=== PATIENT | female | born 1960 | race Caucasian/White ===

== ENCOUNTER → 2020-09-23 09:00 | Outpatient (CLI) | payer OTHER, SELFPAY ==
[2020-09-23 08:30] VITALS: BMI 28.1
[2020-09-26 16:08] LABS: Dopamine, Pl <30 pg/mL (0-48); Epinephrine, Pl 45 pg/mL (0-62); Norepinephrine, Pl 521 pg/mL (0-874)
[2020-09-26 17:25] LABS: DHEA Sulfate 40.2 ug/dL (29.4-220.5)
== END ==
PROVIDERS: PCP Family Medicine; Referring Provider Internal Medicine Endocrinology, Diabetes & Metabolism; Visit Provider Internal Medicine Endocrinology, Diabetes & Metabolism
DX: E27.8 Other specified disorders of adrenal gland (principal)
CPT/HCPCS: 36415; 82384; 82627; 82626

== ENCOUNTER → 2023-05-26 | Outpatient (CLI) | payer OTHER, SELFPAY ==
[2023-05-26 12:19] LABS: Anion Gap 5 (5-15); BUN 17 mg/dL (7-18); BUN/Creat Ratio 17.9 RATIO (10-20); Calcium,Total 9.6 mg/dL (8.5-10.1); Chloride 104 mmol/L (98-107); Creatinine, Serum 0.95 mg/dL (0.55-1.02); EST Glomerular Filtration Rate 64 mL/min (>60); Est Glom Filt Rate - Afr Amer 77 mL/min (>60); Glucose 80 mg/dL (74-106); Potassium 3.7 mmol/L (3.5-5.1); Sodium Level 137 mmol/L (136-145)
== END | disposition home or self-care (01) ==
LOC: PAVLAB 11:40
PROVIDERS: PCP Family Medicine; Referring Provider Obstetrics & Gynecology; Visit Provider Obstetrics & Gynecology
DX: E87.6 Hypokalemia (principal)
CPT/HCPCS: 36415; 80048

== ENCOUNTER 2023-06-03 08:59 | Observation (INO) | payer OTHER, SELFPAY ==
--- NOTE | 2023-05-13 13:57 | EKG12_ITS ---
Test Reason : PRE OP Blood Pressure : / mmHG Vent. Rate : 062 BPM Atrial Rate : 062 BPM P-R Int : 158 ms QRS Dur : 084 ms QT Int : 452 ms P-R-T Axes : 045 021 022 degrees QTc Int : 458 ms Normal sinus rhythm Normal ECG Confirmed by JENNIFER PEREZ, LIANET ([id number]), graphics editor COURTNEY GAVIRIA ([id number]) on 05/16/2023 11:14:12 AM Referred By: Beatris Villa Confirmed By:LIANET RODRIGUEZ MD
--- NOTE | 2023-05-16 17:29 | HP.PCM_ITS ---
History and Physical Allergies No Known Allergies Allergy (Verified 05/02/23 14:02) Medications citalopram 10 mg tablet (Celexa) 5 mg PO DAILY 09/23/20 [History Confirmed 04/01/23] hydrochlorothiazide 12.5 mg tablet 12.5 mg PO DAILY 09/23/20 [History Confirmed 04/01/23] calcium carbonate 600 mg calcium (1,500 mg) tablet (Calcium) 600 mg PO DAILY 04/01/23 [History Confirmed 04/01/23] cholecalciferol (vitamin D3) 10 mcg (400 unit) capsule 10 mcg PO DAILY 04/01/23 [History Confirmed 04/01/23] cetirizine 5 mg tablet 5 mg PO DAILY PRN 05/02/23 [History Confirmed 05/02/23] : No PFSH Medical History?(Updated 04/01/23 @ 16:[address] Beatris Villa MD) Anxiety and depression Hypertension Surgical History?(Updated 05/02/23 @ 14:[address] Beatris Villa MD) H/O bilateral salpingectomy Family History?(Updated 09/23/20 @ 09:[address] Drake Hendrickson MD) Other Depression Heart disease Hypertension Myocardial infarction Social History?(Updated 04/01/23 @ 15:41 by Nuria Allen) current occupational status:? 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 No sexually active:? Yes Smoking Status:? Never smoker alcohol intake:? current alcohol intake frequency: holidays/special occasions only substance use type:? does not use HPI TVHBSO Details: ?GIANNA FISHMAN is a 62 year old who presents for preop visit prior to surgery for vaginal prolapse.? she has a history of pelvic prolapse worsening over the years and now she has a heaviness and pressure, she feels like the last year is to the point she is ready to intervene now. she denies any bleeding or abnormal discharge.? she has some discomfort with intercourse deep pain and dryness that has worsened over the years. denies fecal or urinary incontinence. Female Reproductive History Menopausal Symptoms: Yes night sweats History Past Pregnancies Del. Date Name GA/Weeks Outcome Route Bth Weight Infant Gen Labor Lgth Anesthesia Del Locatn Provider FOB Unknown Schuyler ? Unknown Maribell ? Unknown Antonina ? ROS Const Constitutional: Reports night sweats Eyes Eyes: Denies system reviewed and no additional complaints, except as documented, as per HPI, blurry vision, change in vision, diplopia, dry eyes, irritation, loss of peripheral vision, photophobia, spots in vision or other ENT ENT: Reports system reviewed and no additional complaints, except as documented Cardio Card: Denies chest pain Resp Resp: Denies cough or dyspnea GI GI: Denies abdominal pain, bloating, change in stool character, constipation, fecal incontinence, nausea or vomiting : Reports prolapse symptoms, urinary incontinence and vaginal dryness; Denies pelvic pain, sexual dysfunction, urinary frequency, urinary urgency, vaginal discharge, vaginal odor or vaginal pruritus Musc Musc: Denies arthralgias, back pain or muscle weakness Skin Skin/Breast: Denies system reviewed and no additional complaints, except as documented, as per HPI, acne, alopecia, change in hair, nail changes, change in pigmentation, changing lesions, dry skin, hirsutism, jaundice, lesions, new lesions, pruritus, rash, sores, breast mass, breast pain, breast skin changes or other Neuro Neuro: Reports system reviewed and no additional complaints, except as documented Psych Psych: Denies anxiety or depression Endo Endo: Denies cold intolerance, excessive sweating, heat intolerance or polydipsia Jesús/Lymph Hematologic/Lymphatic: Denies system reviewed and no additional complaints, except as documented, Denies as per HPI, Denies easy bleeding, Denies easy bruising, Denies lymphadenopathy and Denies other Exam Const General: cooperative, healthy appearing, comfortable, no acute distress and well developed Orientation: alert [facility] Head: normal to inspection, normocephalic and atraumatic Ears: hearing grossly normal bilaterally and external ears normal Nose: external nose normal and nares normal Face and sinus: normal facial exam Neck Neck: normal visual inspection, full ROM, no lymphadenopathy and trachea midline Thyroid: thyroid normal Chest Chest palpation & inspection: normal inspection of the chest Breast inspection: normal inspection of the breasts, normal inspection of the axillae, abnormal inspection of the axilla and abnormal inspection of the breast Resp Effort & Inspection: normal respiratory effort Auscultation: clear to auscultation bilaterally Cardio Rate: regular rate Rhythm: regular rhythm Heart Sounds: S1 normal and S2 normal GI Inspection: normal to inspection and non-distended Palpation: soft, no hepatosplenomegaly, no hepatomegaly, not rigid and nontender General: bladder normal to palpation External Female Exam: abnormal external appearance (atrophic introitus), normal appearance of the urethra and no lesions Urethra: normal appearance of the urethra Speculum Exam - Vagina: abnormal appearance of the vagina, normal vaginal discha rge, vagina atrophic and no lesions Speculum Exam - Cervix: normal appearance of the cervix Bimanual Exam- Vagina & Uterus: normal bimanual exam, uterine size normal, bladder normal to palpation, uterine shape normal, uterine mobility normal and non-tender Bimanual Exam- Adnexa, other: normal adnexae, no masses, rectocele, cystocele and vaginal apex descent Pelvic Support: cystocele, rectocele and vaginal apex descent Musc Other: gross motor intact no deficits, full bilateral strength Skin General: no rashes or lesions noted and atrophy Neuro General: patient alert, patient awake, moves all extremities and no focal motor deficits Motor: muscle tone normal throughout Extrem General: normal to inspection and no pedal edema Psych Appearance: grossly normal Mental Status: mental status grossly normal Affect: normal affect Speech and Movement: speech and movement normal Coding Level of Care Code No Charge Diagnoses Incomplete uterovaginal prolapse? N81.2 Assessment and Plan Assessment and Plan (1) Incomplete uterovaginal prolapse: ?Status:?Acute ?Comment: [facility] BSO combo case with justin Ernst After discussing the patient's diagnosis and treatment plan options, patient wishes to proceed with surgical management.? I have discussed with the patient the risks, benefits, and alternatives of the procedure which include but are not limited to risks of anesthesia, bleeding, infection, possible damage to bowel, bladder, or surrounding vasculature which could lead to additional surgery to evaluate any complications.? Patient agrees to procedure and wishes to proceed.? ACOG/uptodate references given for additional information regarding procedure.?
[2023-05-17 06:17] LABS: Hematocrit 39.4 % (37-47); Hemoglobin 13.5 g/dL (12.0-15.0); Mean Corp Hgb Conc 34.3 g/dL (32-36); Mean Corpuscular Volume 84.7 fL (81-99); Mean Platelet Vol. 10.5 fl (6.2-12.0); Platelet Count 217 K/mm3 (150-450); RBC Distribution Width CV 14.8 % (11.6-14.6); RBC Distribution Width SD 45.1 fl (35.1-43.9); Red Blood Count 4.65 M/mm3 (4.2-5.4); White Blood Count 5.3 K/mm3 (4.4-11.0)
[2023-05-17 06:21] VITALS: BP 132/76; PULSE 67; RESP 18; TEMP 36.3; O2SAT 99; BMI 28.9
[2023-05-17] MEDS: Lactated Ringers 1,000 ML 40 ML IV (06:26)
[2023-05-17] MEDS: dexAMETHasone 4 MG/ML Vial 8 MG IV (06:27)
[2023-05-17] MEDS: Celecoxib 200 MG Capsule 400 MG PO (06:34)
[2023-05-17] MEDS: Gabapentin 600 MG Tablet PO (06:34)
[2023-05-17] MEDS: Acetaminophen 500 MG Tablet 1000 MG PO (06:34)
[2023-05-17] MEDS: Enoxaparin 40 MG/0.4 ML Syringe SC (06:34)
[2023-05-17] MEDS: Scopolamine 1mg/72hr Patch 1 PATCH TD (06:35)
[2023-05-17 06:40] LABS: ALB/GLOB Ratio 0.9 RATIO (0.9-2.4); AST(SGOT) 18 U/L (15-37); Alanine Aminotransfer ALT/SGPT 24 U/L (13-56); Albumin, Serum 3.5 g/dL (3.2-5.0); Alkaline Phosphatase 68 U/L (45-117); Anion Gap 6 (5-15); BUN 11 mg/dL (7-18); Calcium,Total 9.5 mg/dL (8.5-10.1); Chloride 104 mmol/L (98-107); Creatinine, Serum 0.92 mg/dL (0.55-1.02); EST Glomerular Filtration Rate 66 mL/min (>60); Est Glom Filt Rate - Afr Amer 80 mL/min (>60); Estimated Creatinine Clearance 63.24 ml/min; Globulin 3.7 g/dL (2.2-4.2); Glucose 101 mg/dL (74-106); Magnesium 1.9 mg/dL (1.6-2.6); Potassium 2.7 mmol/L (3.5-5.1); Protein, Total 7.2 g/dL (6.4-8.2); Sodium Level 140 mmol/L (136-145)
--- NOTE | 2023-05-17 06:40 | SUR.PREOP ---
Lab calls with critical value, potassium 2.7
[2023-05-17 07:04] LABS: Potassium 2.6 mmol/L (3.5-5.1)
[2023-05-17 07:06] LABS: Bedside Glucose 95 mg/dL (74-106)
--- NOTE | 2023-05-17 07:11 | SUR.PREOP ---
PER ANESTHESIA PATIENT'S CASE WILL BE CANCELLED D/T POTASSIUM LEVEL OF 2.6. DR. GOULD AND DR. MIRANDA AWARE. DR. GOULD COMING IN TO SPEAK TO THE PATIENT AND ORDER POTASSIUM SUPPLEMENTATION.
[2023-06-03] VITALS (12 sets, daily range): BP systolic 127–148; BP diastolic 65–85; PULSE 60–83; RESP 16–18; TEMP 36.1–36.9; O2SAT 95–100; BMI 28.6
--- NOTE | 2023-06-03 | HYST_PTH ---
PATIENT: GIANNA FISHMAN LOC: MS3 U#:[id number] AGE/SX: 62/F ROOM: [facility] RE06/03/[address]: Dr. Beatris Villa MD : [id number] BED: 1 DIS: 06/04/2023 SPEC #: [id number] RECD: 06/03/23 11:41 STATUS: DANIEL PENALOZA #: [id number] RULA: 06/03/23 00:[address]: Beatris Villa DEPT: SURGICAL PATHOLOGY RECD BY: Edwin Larry ENTERED: 06/03/23 12:21 SP TYPE: HYSTERECT OTHR DR: MD Sonia Heath PA Tissues: Uterus, NOS Procedures: Surgery Specimen Level V HEADER OPERATION: ERAS, hysterectomy, LAVH, BSO, anterior and posterior repair PRE-OP DIAGNOSIS: Incomplete uterovaginal prolapse TISSUE SUBMITTED: Uterus, bilateral fallopian tubes, bilateral ovaries, fibroids MICROSCOPIC DIAGNOSIS Uterus, hysterectomy: Cervix - chronic cystic cervicitis with tunnel cluster formation. Endometrium - proliferative endometrium with cystic changes. Myometrium - leiomyomas with focal calcifications. Bilateral fallopian tubes - no pathologic diagnosis. Right ovary - simple epithelial cyst. Left ovary - no pathologic diagnosis. Bilateral paratubal cysts. SJ: 06/06/2023 MICROSCOPIC DESCRIPTION Slides are reviewed. GROSS DESCRIPTION Received in fixative is one container labeled with the patient's name and designated uterus, bilateral fallopian tubes, bilateral ovaries and fibroids. The specimen consists of a hysterectomy specimen previously, partially opened consisting of uterus with cervix, attached bilateral fallopian tubes and detached nodular mass. The uterus with cervix and detached nodular mass weighs in aggregate 289 gm. The uterus with cervix measures 13.0 x 9.0 x 9.0 cm. The serosal surface is aggarwal, glistening. The ectocervical mucosa is unremarkable. The external os is circular in contour. The endocervical canal measures 3.0 cm in length and the endocervical mucosa is aggarwal, glistening and unremarkable. The endometrial cavity is compressed to one side and triangular and measures 4.5 cm in length and up to 2.5 cm in width. The endometrium is aggarwal, glistening without any mass lesion and measures 0.1 cm in thickness. Sections of the uterine wall reveal multiple nodular masses. The largest mass measures 8.0 cm in diameter. Sections of these masses reveal aggarwal whorled cut surfaces without areas of hemorrhage, necrosis or cystic degeneration. The detached nodular mass measures 6.0 cm in greatest dimension. Sections of a few of the masses cuts with gritty sensation consistent with calcification. The uninvolved uterine wall measures up to 4.0 cm in thickness. The right fallopian tube measures 6.0 cm in length and 0.5 cm in diameter. The fimbrial end is identified. No tubo-ovarian adhesions are noted. Multiple cysts are noted filled with clear fluid. The right ovary measures 3.0 x 1.5 x 1.5 cm. Sections reveal unremarkable cut surfaces. The left fallopian tube is similar appearance to right and measures 5.5 cm in length and 0.6 cm in diameter. A paratubal cyst is noted measuring 1.5 cm in greatest dimension. It is filled with clear fluid. The left ovary measures 3.5 x 2.0 x 1.5 cm. It is similar appearance to right. Director Revenue sections are submitted in 12 cassettes as follows: 1 - anterior cervix, 2 - posterior cervix, 3 & 4 - anterior uterine wall, 5 & 6 - posterior uterine wall, 7 - largest nodular mass, 8 - second largest nodular mass, 9 - detached nodular mass, 10 - smaller nodular masses, 11 - right fallopian tube, right ovary and paratubal cyst, 12 - left fallopian tube, left ovary and paratubal cyst. / SHIVANI:elpidio 06/03/2023 TC:1 CPT: 43708
[2023-06-03] MEDS: Magnesium 2 GM for ERAS IV (06:56)
[2023-06-03] MEDS: Lactated Ringers 1,000 ML 40 ML IV ×2 (06:56→11:53)
[2023-06-03] MEDS: Enoxaparin 40 MG/0.4 ML Syringe SC (06:57)
[2023-06-03] MEDS: Gabapentin 600 MG Tablet PO (06:57)
[2023-06-03] MEDS: Acetaminophen 500 MG Tablet 1000 MG PO (06:57)
[2023-06-03] MEDS: Celecoxib 200 MG Capsule 400 MG PO (06:57)
[2023-06-03] MEDS: Scopolamine 1mg/72hr Patch 1 PATCH TD (06:58)
[2023-06-03] MEDS: dexAMETHasone 4 MG/ML Vial 8 MG IV (07:04)
[2023-06-03] MEDS: Cefazolin 2 GM in 0.9% Normal Saline 100 ML IV (07:33)
[2023-06-03 07:34] LABS: Bedside Glucose 109 mg/dL (74-106)
[2023-06-03] MEDS: Bupivacaine 0.25% 30 ML Vial (08:15)
--- NOTE | 2023-06-03 09:04 | DCINST_ITS ---
Discharge Instructions Diet Discharge Diet: No restrictions Activity Discharge Activity: May Not Drive (For the next 2 weeks) and May Shower May resume sexual activity in: 8 weeks Lifting Restrictions: 5 pounds for the next 8 weeks Additional Activity Instructions:: No sexual activity, no tub bathing/swimming/hot tubs, no strenuous activity, no exercise, no vacuuming Dressing / Incision Call your doctor if your incision/area has: Continuous Slow Oozing, Sudden Increased Bleeding, Increased Pain/ Swelling, Increased Redness, Foul Smelling Discharge and Swelling at the incision site Call your doctor if you observe: Fever of 101 or Higher, Inability to urinate and Inability to have a bowel movement Follow Up Care Please Follow Up With: Beatris Villa MD When: and Dr. Murphy, call office for appt Test Results: Test results from this visit will be discussed in further detail at your follow- up appointment, if applicable. Discharge Plan Admission Attending Provider: Beatris Villa Primary Care Provider: Sonia Henderson Consulting Providers: Sienna Murphy Discharge Orders/Prescriptions Prescriptions: New oxycodone-acetaminophen [Percocet] 5-325 mg tablet 1 tab PO Q8H PRN (Reason: pain) 3 Days Qty: 15 0RF cephalexin [cephalexin] 500 mg capsule 500 mg PO Q12 3 Days Qty: 6 0RF Continued citalopram [Celexa] 10 mg tablet 5 mg PO DAILY hydrochlorothiazide 12.5 mg tablet 12.5 mg PO DAILY calcium carbonate [Calcium 600] 600 mg calcium (1,500 mg) tablet 600 mg PO DAILY cholecalciferol (vitamin D3) 10 mcg (400 unit) capsule 10 mcg PO DAILY potassium chloride 20 mEq tablet extended release PO Patient Comments: TAKE 1 TABLETS BY MOUTH TWICE DAILY Other Ambulatory Orders: 12 Lead EKG (Routine) Timeframe: [id number] Location: None Selected Ordered By: Dr. Beatris Villa Referrals / Follow Up: Tammi Kong MD [Non-Staff] - Disposition Disposition (needs filled in before D/C Order can be placed): Home, Self Care
--- NOTE | 2023-06-03 09:08 | OP.PCM_ITS ---
Report of Operation Date of Procedure: 06/03/23 Pre-Operative Diagnosis: Incomplete uterovaginal prolapse Post-Operative Diagnosis: Same Surgery/Procedure Performed:: Anterior and posterior repair, bilateral sacrospinous ligament fixation with dermis, cystoscopy with bilateral ureteral catheterization Surgeon: Sienna Murphy Type of Anesthesia: General Estimated Blood Loss (mL): 100 cc Description of Procedure: The patient is a 62-year-old female with significant pelvic organ prolapse who underwent office evaluation and testing and now presents for surgical interve ntion. Informed consent was obtained. The patient was taken to the operating room and placed on the operating room table. Anesthesia monitored the head, neck, airway, IV access and vital signs throughout the case. Once anesthesia was appropriately administered, the patient was placed into dorsolithotomy position and was prepped and draped in usual sterile fashion. Dr. Villa performed her portion of the procedure, closed the vaginal cuff and turned the case over to nh. At this time the Wing balloon was deflated and the catheter removed. The cystoscope was inserted through the urethra under direct visualization into the urinary bladder. The bladder mucosa was found to be intact without evidence of abnormality. Starting with the left ureteral orifice, a 5 Yi whistle-tip catheter was gently advanced to 20 cm into the renal pelvis with no evidence of injury or obstruction. This process was then repeated on the patient's right side with the same findings. The whistle-tip catheter and the cystoscope were then removed and replaced with the indwelling Wing catheter and the balloon was inflated. Given the anatomy of her pelvis, the decision was made to perform the sacrospinous ligament fixation from a posterior approach. The posterior vaginal wall submucosa was injected with local anesthetic for hydrostatic dissection and hemostatic control. A midline incision was made and sharp and blunt dissection was performed bilaterally and in the midline until the apex was reached and the sacrospinous ligaments were identified and freed from surrounding tissues. Using the Capio device, an Ethibond suture was passed through each individual sacrospinous ligament and then through the dermis which was trimmed to length. The suture was then passed out through the vaginal mucosa in full-thickness fashion at the apex. The sutures were tied into position and the dermis was trimmed to fit. The dermis was then secured into position using 2-0 Vicryl interrupted suture. After this was complete, the perineal body was brought together in a 2 layer closure with interrupted suture. The vaginal mucosa was then closed in running interlocking fashion with 2-0 Vicryl. Attention was then turned towards the anterior vaginal wall where the submucosa was injected once again for hydrostatic dissection and hemostatic control. A vertical midline incision was made and sharp and blunt dissection was performed bilaterally until the pubocervical fascia was identified. The fascia was then brought together in a 2 layer closure using 2-0 interrupted Vicryl. The vaginal mucosa was closed using running interlocking suture. At this time the Wing catheter was removed and the cystoscope was inserted through the urethra under direct visualization into the urinary bladder. Once again the bladder mucosa was found to be intact without evidence of injury or abnormality. Each ureteral orifice was internal corrosion specialist gently cannulated with a 5 Yi whistle-tip catheter which easily advanced to 20 cm bilaterally. The cystoscope was then removed along with the whistle-tip catheter and the Wing catheter was replaced. The balloon was filled with 10 cc of water. The vagina was packed with Premarin cream and vaginal packing. The patient was then awakened and taken to the recovery room in good condition. There were no complications during this procedure. Grafts/Implants Used: Dermis Complications None Admit VTE Documentation VTE Present on Admission: Yes VTE Mechan Device Prophylaxis: SCD's VTE Pharm Prophylaxis ordered?: Yes
[2023-06-03] MEDS: Lubricating Jelly 60 GM Tube 30 GM (09:38)
--- NOTE | 2023-06-03 09:39 | OP.PCM_ITS ---
Problems Associated Problem List Diagnoses (1) Incomplete uterovaginal prolapse: (2) Uterine fibroid: (3) Hypertension: (4) S/P laparoscopic assisted vaginal hysterectomy (LAVH): Report of Operation Date of Procedure: 06/03/23 Pre-Operative Diagnosis: see A/P Post-Operative Diagnosis: same Surgery/Procedure Performed:: ANUJHBSO Description of Surgical Findings:: enlarged 320g uterus multiple fibroids nl ovaries Surgeon: Beatris Villa artificial leather calender operator: Janell Parker Type of Anesthesia: General Specimen's removed: uterus, tubes ovaries 320 g Drains: cole Fluids Replaced: crystalloid Description of Procedure: Patient received preoperative antibiotics and SCDs were on preoperatively. Patient was taken back to the operating room and placed in the dorsal lithotomy position. General anesthesia was induced and patient was prepped and draped in normal sterile fashion. Uterine manipulator was placed inside the uterus and Cole catheter placed in the bladder. The umbilicus was grasped with towel clamps and an intraumbilical incision was made after injecting with quarter percent Marcaine and a Veress needle entered into the abdomen confirmed to be intra-abdominal with a low opening pressure. Abdomen was insufflated with CO2 gas and the Veress needle removed and the 5 mm trocar was placed under direct visualization without complication. Right and left lower quadrants were transilluminated and injected with quarter percent Marcaine and 5 mm ports placed under direct visualization. Pelvis was well visualized see operative findings for additional information. Bilateral fallopian tubes were identified and IP ligaments transected with the LigaSure device across to the level of the utero-ovarian ligament. The broad ligament was opened up by transecting the round ligament bilaterally and skeletonizing the uterine vessels bilaterally and creating a bladder flap using the LigaSure device. the dissection was difficult due to fibroid location but aided with a 30 degree scope and hydrodissection. this took 40 minutes going back and forth carefully dissecting to allow good visualization of the bladder. The uterine arteries were transected bilaterally with good visualization of the bladder and the ureters were seen to be inferior lateral to the operative area. Attention was then paid to the vaginal portion of the procedure and the cervix was grasped with Edelmira clamps and circumferentially injected with dilute vasopressin. A circumferential incision was made and the vaginal mucosa was mobilized off posteriorly and the cul-de-sac entered into sharply and a longneck speculum placed. The anterior cul-de-sac was then identified and entered into sharply. The uterosacral ligaments were clamped cut and suture ligated with 0 Monocryl bilaterally followed by the cardinal ligaments which were clamped cut and suture ligated bilaterally with 0 Monocryl. The uterus serially descended and was removed without difficulty. Pelvic sidewall pedicles were checked and noted to have excellent hemostasis. The vaginal mucosa was reapproximated incorporating the posterior peritoneum. This was reapproximated using 0 Vicryl [id number] sutures. Excellent hemostasis was noted. The pelvis and cul-de-sac were well visualized and no significant active bleeding noted. Pressure was taken down and the areas visualized and noted of excellent hemostasis. All ports were removed under direct visualization without complication and the abdomen was desufflated of air. The instruments were removed from the abdomen and the vaginal sweep was negative. Port sites on the abdomen were closed with 4-0 Monocryl interrupted sutures and Steri's and windows were applied. see Dr Kareen sigala for her procedure notes. Grafts/Implants Used: none Complications none Admit VTE Documentation VTE Present on Admission: No VTE Mechan Device Prophylaxis: SCD's VTE Pharm Prophylaxis ordered?: Yes Procedures Urinary/Genital [id number]: [id number] LAVH+BS/O >250gr Uterus
[2023-06-03] MEDS: Vasopressin 20 UNITS/ML Vial (10:30)
[2023-06-03] MEDS: Estrogens,Conj. 1 Tube 1 DOSE (11:09)
[2023-06-03] MEDS: Dextrose 5%-Lactated Ringers 1,000 ML 100 ML IV ×2 (13:34→22:39)
--- NOTE | 2023-06-03 16:56 | DCINST_ITS ---
Discharge Instructions Diet Discharge Diet: No restrictions Activity May resume sexual activity in: 8 weeks Weight Bearing Status: Full weight bearing Additional Activity Instructions:: No sexual activity, no tub bathing/swimming /hot tubs, no strenuous activity, no exercise, no vacuuming Dressing / Incision Call your doctor if your incision/area has: Continuous Slow Oozing, Sudden Increased Bleeding, Increased Pain/ Swelling, Increased Redness, Foul Smelling Discharge and Swelling at the incision site Call your doctor if you observe: Fever of 101 or Higher, Inability to urinate and Inability to have a bowel movement Suture Line Care: Avoid Pulling/Pushing and Avoid Pinching/Bending Remove Dressing in: 1 week (if present) Cleanse incision/area with: Soap & Water and Keep Dressing Clean & Dry Follow Up Care Please Follow Up With: Beatris Villa MD When: Call to make an appointment with your doctor for a postop visit in 2 and 6 weeks. Test Results: Test results from this visit will be discussed in further detail at your follow- up appointment, if applicable. Discharge Plan Admission Admit Date/Time: 06/03/23 08:59 Attending Provider: Beatris Villa Primary Care Provider: Sonia Henderson Consulting Providers: Sienna Murphy Discharge Orders/Prescriptions Prescriptions: New oxycodone-acetaminophen [Percocet] 5-325 mg tablet 1 tab PO Q8H PRN (Reason: pain) 3 Days Qty: 15 0RF cephalexin [cephalexin] 500 mg capsule 500 mg PO Q12 3 Days Qty: 6 0RF Continued citalopram [Celexa] 10 mg tablet 5 mg PO DAILY hydrochlorothiazide 12.5 mg tablet 12.5 mg PO DAILY calcium carbonate [Calcium 600] 600 mg calcium (1,500 mg) tablet 600 mg PO DAILY cholecalciferol (vitamin D3) 10 mcg (400 unit) capsule 10 mcg PO DAILY potassium chloride 20 mEq tablet extended release PO Patient Comments: TAKE 1 TABLETS BY MOUTH TWICE DAILY Other Ambulatory Orders: 12 Lead EKG (Routine) Timeframe: [id number] Location: None Selected Ordered By: Dr. Beatris Villa Referrals / Follow Up: Tammi Kong MD [Non-Staff] - Disposition Disposition (needs filled in before D/C Order can be placed): Home, Self Care
[2023-06-03] MEDS: Cephalexin 500 MG Capsule PO ×2 (17:10→22:37)
[2023-06-03] MEDS: Glycerin/Hypromellose/PEG400 15 ml Bottle 2 DRP LEFT EYE (17:10)
[2023-06-03] MEDS: Docusate Sodium 100 MG Capsule 200 MG PO (17:10)
[2023-06-03] MEDS: Citalopram 10 MG Tablet 5 MG PO (17:10)
[2023-06-03] MEDS: Ondansetron 4 MG/2 ML Vial IV (20:55)
[2023-06-04 01:30] VITALS: BP 123/66; PULSE 62; RESP 16; TEMP 37.1; O2SAT 92
[2023-06-04] MEDS: Enoxaparin 40 MG/0.4 ML Syringe SC (05:35)
[2023-06-04 05:40] VITALS: BP 125/59; PULSE 60; RESP 16; TEMP 36.9; O2SAT 98
--- NOTE | 2023-06-04 06:02 | PCM.PN.OB ---
Subjective Subjective Patient doing well without complaints. Tolerating PO. Ambulating without difficulty. Denies chest pain, shortness of breath, calf pain/swelling, fevers, chills, lightheadedness. Objective Data Objective Data Vital Signs: Vital Signs Temp Pulse Resp BP Pulse Ox O2 Del Method O2 Flow Rate 98.4 F 60 16 125/59 H 98 Room Air 4 06/04/23 05:40 06/04/23 05:40 06/04/23 05:40 06/04/23 05:40 06/04/23 05:40 06/04/23 05:40 06/03/23 12:15 Oxygen Flow Rate (L/min) 4 Oxygen Delivery Method Room Air Weight: 182 lb 12.211 oz Body Mass Index (BMI) 28.6 Intake & Output: Intake and Output for Last 24 Hours 06/02/23 06/03/23 06/04/23 23:59 23:59 23:59 Intake Total 3787.00 / 4087.00 650 / 650 Output Total 1400 / 1850 700 / 700 Balance 2387.00 / 2237.00 -50 / -50 Lab / Micro Data 05/17/23 06:10 05/17/23 06:48 Labs: Laboratory Results - last 24 hr 06/03/23 06:51: Blood Type O POSITIVE, Antibody Screen NEGATIVE 06/03/23 07:16: POC Glucose 109 H ROS Constitutional Constitutional: Reports systems reviewed and no addt'l complaints, except as documented Cardiovascular Cardiovascular: Reports systems reviewed and no addt'l complaints, except as documented Respiratory/Chest Respiratory/Chest: Reports systems reviewed and no addt'l complaints, except as documented Gastrointestinal Gastrointestinal: Reports systems reviewed and no addt'l complaints, except as documented Physical Exam Const alert, oriented x3 and no apparent distress HEENT Head and Scalp: atraumatic Resp normal respiratory effort GI soft to palpation and non-tender Assessment & Plan (1) S/P laparoscopic assisted vaginal hysterectomy (LAVH): COMMENT: lavh bso fibroids prolapse (2) Uterine fibroid: COMMENT: plan for LAVH BSO (3) Incomplete uterovaginal prolapse: COMMENT: LAVH BSO combo case with justin PLAN: Plan patient is s/p lavhbso POD 1 1. routine ERAS protocol postop care- increase ambulation, encourage oral intake and oral control of pain. lovenox and scds for dvt prophylaxis, patient stable for discharge to home.
[2023-06-04 06:20] LABS: Hematocrit 34.8 % (37-47); Hemoglobin 11.5 g/dL (12.0-15.0); Mean Corpuscular Hgb 28.8 pg (27.0-32.0); Mean Corpuscular Volume 87.2 fL (81-99); Platelet Count 203 K/mm3 (150-450); RBC Distribution Width CV 14.3 % (11.6-14.6); RBC Distribution Width SD 46.1 fl (35.1-43.9); Red Blood Count 3.99 M/mm3 (4.2-5.4); White Blood Count 11.4 K/mm3 (4.4-11.0)
[2023-06-04 06:47] VITALS: O2SAT 97
[2023-06-04] MEDS: Docusate Sodium 100 MG Capsule 200 MG PO (07:49)
[2023-06-04] MEDS: Potassium Chloride Oral Tablet 20 MEQ PO (07:49)
[2023-06-04] MEDS: hydroCHLOROthiazide 12.5mg 12.5 MG PO (07:50)
[2023-06-04] MEDS: Cephalexin 500 MG Capsule PO (07:50)
[2023-06-04] MEDS: Dextrose 5%-Lactated Ringers 1,000 ML 100 ML IV (07:51)
[2023-06-04] MEDS: Citalopram 10 MG Tablet 5 MG PO (07:53)
[2023-06-04 08:26] VITALS: BP 116/69; PULSE 63; RESP 16; TEMP 36.7; O2SAT 99
[2023-06-04 08:31] VITALS: BP 116/69; PULSE 63; RESP 16; TEMP 36.7; O2SAT 99
[2023-06-04 08:40] LABS: Anion Gap 6 (5-15); BUN 11 mg/dL (7-18); BUN/Creat Ratio 12.9 RATIO (10-20); Calcium,Total 8.7 mg/dL (8.5-10.1); Chloride 105 mmol/L (98-107); Creatinine, Serum 0.86 mg/dL (0.55-1.02); EST Glomerular Filtration Rate 72 mL/min (>60); Est Glom Filt Rate - Afr Amer 87 mL/min (>60); Estimated Creatinine Clearance 67.65 ml/min; Glucose 124 mg/dL (74-106); Potassium 3.2 mmol/L (3.5-5.1); Sodium Level 138 mmol/L (136-145)
--- NOTE | 2023-06-04 09:20 | PCM.PN.GU ---
Subjective Subjective No issues overnight. She is ambulating, tolerating oral intake, and passing gas. Her nausea resolved following removal of her scopolamine patch. Objective Data Objective Data Vital Signs: Vital Signs Temp Pulse Resp BP Pulse Ox O2 Del Method O2 Flow Rate 98.1 F 63 16 116/69 99 Room Air 4 06/04/23 08:31 06/04/23 08:31 06/04/23 08:31 06/04/23 08:31 06/04/23 08:06/04/23 08:06/03/23 12:15 Oxygen Flow Rate (L/min) 4 Oxygen Delivery Method Room Air Weight: 82.9 kg Body Mass Index (BMI) 28.6 Intake & Output: Intake and Output for Last 24 Hours 06/02/23 06/03/23 06/04/23 23:59 23:59 23:59 Intake Total 3787.00 / 4087.00 1570 / 1570 Output Total 1400 / 1850 700 / 700 Balance 2387.00 / 2237.00 870 / 870 Lab / Micro Data Attestation: I reviewed the patient's lab results. 06/04/23 05:27 06/04/23 05:27 Labs: Laboratory Results - last 24 hr 06/04/23 05:27: WBC 11.4 H, RBC 3.99 L, Hgb 11.5 L, Hct 34.8 L, MCV 87.2, MCH 28.8, MCHC 33.0, RDW Std Deviation 46.1 H, RDW Coeff of Esme 14.3, Plt Count 203, MPV 11.0, Sodium 138, Potassium 3.2 L, Chloride 105, Carbon Dioxide 27.0, Anion Gap 6, BUN 11, Creatinine 0.86, Estim Creat Clear Calc 67.65, Est GFR (MDRD) Af Amer 87, Est GFR (MDRD) Non-Af 72, BUN/Creatinine Ratio 12.9, Glucose 124 H, Calcium 8.7 Physical Exam Const alert, oriented x3 and no apparent distress Eyes Eyes Narrative: Erythema has resolved. General Eye: normal appearance of both eyes Neck supple General: trachea midline Lymph Lymphatic: no lymphedema noted Chest inspection of chest normal Resp normal respiratory effort, normal air movement, no retractions and no use of accessory muscles Effort and Inspection: able to speak in complete sentences Cardio regular rate GI soft to palpation, non-tender and non-distended external exam normal Narrative: Wing catheter and vaginal packing removed without incident Bladder / Kidney Exam: catheter in place Extremity normal to inspection Skin no rashes or lesions noted, no wounds, skin turgor normal, no jaundice, no petechiae and no mottling Neuro oriented x3, CN's II-XII intact bilaterally and moves all extremities Psych mental status grossly normal Assessment & Plan Assessment/Plan (1) S/P laparoscopic assisted vaginal hysterectomy (LAVH): (2) Incomplete uterovaginal prolapse: (3) Uterine fibroid: QUALIFIERS: Uterine leiomyoma location: unspecified location Qualified Code(s): D25.9 - Leiomyoma of uterus, unspecified PLAN: Plan Trial of void in home later this afternoon with or without Wing catheter depending on voiding results
[2023-06-04 11:32] VITALS: BP 131/77; PULSE 60; RESP 16; TEMP 37; O2SAT 97
== END 2023-06-04 13:41 | disposition home or self-care (01) ==
LOC: SDC 12:55 → MS3 12:55
PROVIDERS: Anesthesiology; Urology; Admitting Provider Obstetrics & Gynecology; PCP Physician Assistant; Referring Provider Obstetrics & Gynecology; Visit Provider Obstetrics & Gynecology
PROC: 0UT9FZZ Resection of Uterus, Via Natural or Artificial Opening With Percutaneous Endoscopic Assistance (ICD-10-PCS; CPT 58554; principal; 2023-06-03 07:05)
PROC: (CPT 57260; 2023-06-03 07:05)
DX: N81.2 Incomplete uterovaginal prolapse (principal); D25.9 Leiomyoma of uterus, unspecified; I10 Essential (primary) hypertension; F41.9 Anxiety disorder, unspecified; F32.A Depression, unspecified; Z79.899 Other long term (current) drug therapy
CPT/HCPCS: 58554; 00944; 36415; 80048; 80053; 82962; 83735; 84132; 85027; 86850; 86900; 86901; 88307; 93005; 94668; 96361; 96372; 96374; 99221; 99252; J7120; C1758; G0378; G0463; J2405